=== PATIENT | female | born 1995 | race Caucasian/White ===

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

== ENCOUNTER 2020-09-20 12:35 | Inpatient (IN) ==
--- NOTE | 2020-09-20 12:57 | History & Physical Report ---
Date of Service September 20, 2020 Assessment & Plan (1) Active labor: PNL: Rh pos, RI, GBS neg, COVID neg Admit, labs, start IV Will proceed with urgent due to breech presentation and patient's presentation to L&D in early active labor. (2) Breech presentation: (3) Supervision of normal intrauterine in primigravida: History of Present Illness Primary Care Provider: Ashley Noble MD Nataly Terrell is a 25 y/o female currently at 38 +4 WGA with an KAYLI 09/30/2020 as determined by LMP who is here in early labor for . Patient with fetus in known breech presentation (originally had scheduled for 09/27/20). Just prior to arrival, she was evaluated in the OB office and was found to be 3cm dilated; she was then sent to L&D. Her has been uncomplicated. + contractions; + movement; - fluid loss; - bloody show Had regular appointments with OB. Blood type: A+ Antibody screen: negative Labs 03/19/20 Rubella: immune VDRL/RPR: neg Gonorrhea: neg Chlamydia: neg HIV: neg HbSAg: neg GBS: negative 09/07/2020 COVID-19 negative 09/20/20 Other screens: Declines CF/SMA/MSAFP Panorama low risk, female Allergies Allergy/AdvReac Type Severity Reaction Status Date / Time No Known Allergies Allergy Verified 09/20/20 07:10 Home Medications Medication Instructions Recorded Confirmed Type cetirizine 10 mg tablet 10 mg PO DAILY PRN 04/17/20 09/20/20 History prenat.vits,carmela,vub-limg-oeogb 1 tab PO DAILY 04/17/20 09/20/20 History docusate sodium [Colace] 50 mg PO DAILY 07/23/20 09/20/20 History Patient History Medical History Encounter for anatomic survey History of headache History of reactive airway disease Unspecified asthma with (acute) exacerbation Surgical History S/P wisdom tooth extraction Family History Grandfather (Paternal) Myocardial infarction Father Dyslipidemia Mother Multiple sclerosis Grandmother (Paternal) Breast cancer diagnosed in 70's Denies family history of Ovarian cancer Colorectal cancer Uterine cancer Social History Smoking Status: Never smoker Second Hand Exposure: No; Do You Dip or Chew Tobacco: No; Tobacco Cessation Education Requested by Patient: No Hx Alcohol Use: No Hx Substance Use: No Preferred Language: Armenian Communication Ability: Effective Sheltered Workshop Executive Director Required: No Beliefs That Will Affect Care: None marital status: marital status details: Arturo (25) [phone] Current Living Situation: Family Current Living Situation Comment: lvies with spouse, pts mom and dad, 2 dogs, 2 cats, family to change litter current occupational status: employed current occupation: [employer] Other Information That Helps Us Care for You: No Feels Safe at Home: Yes Safety Concerns: Feels Safe At This Time Assistive Devices: None Review of Systems Denies fever or chills. Denies shortness of breath or cough. Denies chest pain. Denies breast pain. Denies dysuria or hematuria. Denies leg pain or leg swelling. Denies headache or changes in vision. Physical Exam Physical Exam: General: Alert, oriented. No acute distress. Cardiac: Regular rate and rhythm, no murmurs/rubs/gallops. Respiratory: Clear to auscultation bilaterally a/p, no wheezes/rales/rhonchi. No increased work of breathing. Symmetrical chest rise. No respiratory distress. Abdomen: Gravid. Vertex position. + heart tones. +/- palpable contractions. EFW 7-8# Pelvic: Dilation 4 cm; Effacement 75%; Station -[address] Aburto External FHT and external uterine monitors used; Category I tracing; moderate FHT variability. Lower Extremities: No lower extremity edema or swelling. No deep calf pain. Carmel's negative bilaterally Results & Data ([facility]) Laboratory Results Labs at admission today 09/20/20 09/20/20 Range/Units 13:09 13:09 WBC 11.20 H (4.8-10.8) K/uL RBC 4.23 (4.2-5.4) M/uL Hgb 12.9 (12.0-16.0) g/dL Hct 38.3 (37-47) % MCV 90.5 (80-100) fL MCH 30.5 (25-34) pg MCHC 33.7 (32-36) g/dL RDW Std Deviation 43.3 (36.4-46.3) fL RDW Coeff of Glenis 13.1 (11.5-14.5) % Plt Count 302 (130-400) K/uL MPV 9.4 (7.4-10.4) fL Immature Gran % (Auto) 0.2 % Neut % (Auto) 79.0 % Lymph % (Auto) 14.6 % Harper % (Auto) 5.8 % Eos % (Auto) 0.4 % Baso % (Auto) 0.0 % Neut # (Auto) 8.84 H (1.4-6.5) K/uL Lymph # (Auto) 1.64 (1.2-3.4) K/uL Harper # (Auto) 0.65 H (0.11-0.59) K/uL Eos # (Auto) 0.05 (0-0.5) K/uL Baso # (Auto) 0.00 (0-0.2) K/uL Immature Gran # (Auto) 0.02 (0.00-0.02) K/uL Blood Type Pending Antibody Screen Pending Supervising Physician Co-Signing Physician Notes Patient seen and evaluated and agree with the above findings and plan. Resident Activity Tracking Resident Involvement: Resident Care Provided Care Provided: OB Delivery
[2020-09-20] MEDS: ceFAZolin 2000MG 2,000 MG/15 ML SYR IV SCH ×2 (13:10→13:59)
[2020-09-20] MEDS ORDERED: CITRIC ACID/SODIUM CITRATE 15 ML UDC PO SCH (13:15)
[2020-09-20 13:17] LABS: Eosinophils # (auto) 0.05 K/uL (0-0.5); Eosinophils % (auto) 0.4 %; Hematocrit (blood only) 38.3 % (37-47); Hemoglobin 12.9 g/dL (12.0-16.0); Immature Granulocytes # (auto) 0.02 K/uL (0.00-0.02); Immature Granulocytes % (auto) 0.2 %; Lymphocytes # (auto) 1.64 K/uL (1.2-3.4); Lymphocytes % (auto) 14.6 %; Mean Corpuscular Hemoglobin 30.5 pg (25-34); Mean Corpuscular Volume 90.5 fL (80-100); Mean Platelet Volume 9.4 fL (7.4-10.4); Monocytes # (auto) 0.65 K/uL (0.11-0.59); Monocytes % (auto) 5.8 %; Neutrophils # (auto) 8.84 K/uL (1.4-6.5); Platelet Count 302 K/uL (130-400); RDW Coefficient of Variation 13.1 % (11.5-14.5); RDW Standard Deviation 43.3 fL (36.4-46.3); Red Blood Count 4.23 M/uL (4.2-5.4)
[2020-09-20 13:33] LABS: Mean Corpuscular Hgb Conc 33.7 g/dL (32-36)
[2020-09-20] MEDS ORDERED: ONDANSETRON INJ 2 MG/ML 2 ML VIAL IV PRN (14:03)
[2020-09-20] MEDS ORDERED: MoRPHine SULFATE 2 MG/ML CARP IV PRN (14:03)
[2020-09-20] MEDS ORDERED: NALOXONE HCL 1 MG in SODIUM CHLORIDE 0.9% 1000ML 1,000 ML IV PRN (14:03)
[2020-09-20] MEDS ORDERED: NALOXONE HCL 0.4 MG/1 ML VIAL/CARP IV PRN (14:03)
[2020-09-20] MEDS ORDERED: HYDROmorphone INJ 1 MG/ML SYRINGE IV PRN (14:03)
[2020-09-20] MEDS ORDERED: LACTATED RINGER'S 500 ML IV PRN (14:03)
[2020-09-20] MEDS ORDERED: NALOXONE HCL 0.08 MG in SYRINGE 1.8 ML IV PRN (14:03)
[2020-09-20] MEDS ORDERED: ePHEDrine sulfate 50 MG/ML AMP IV PRN (14:03)
[2020-09-20] MEDS ORDERED: PROMETHAZINE HCL 6.25 MG in SODIUM CHLORIDE 0.9% 50 ML IV PRN (14:03)
[2020-09-20] MEDS ORDERED: MoRPHine SULFATE PF 1 MG/ML 10 ML AMP/VIAL INT SPINAL ONE (14:03)
[2020-09-20] MEDS ORDERED: diphenhydrAMINE 50 MG/ML VIAL IV PRN (14:03)
[2020-09-20] MEDS ORDERED: MEPERIDINE HCL 25 MG/ML CARP/VIAL IV PRN (14:03)
--- NOTE | 2020-09-20 14:03 | Anesthesiology Consultation ---
Date of Service September 20, 2020 Assessment & Plan (1) Encounter for pre-operative examination: Chart Review Chart Review: Acceptable Risk for Surgery and Patient NOT seen in Pre Admission Testing Consults Requested none ASA ASA2E Proposed Anesthesia Anesthesia Type: Spinal (+ intrathecal narcotics) Risk / Benefits Reviewed With: PT / POA / Parent / Guardian, Accepts Plan and Informed Consent Obtained History Surgery Operation Date: 09/20/20 13:15 Proposed Procedures p Section in OR - Paul Aburto MD Height/Weight Height: 5 ft 3 in Weight: 84.368 kg Allergies Allergy/AdvReac Type Severity Reaction Status Date / Time No Known Allergies Allergy Verified 09/20/20 07:10 Medications Home Medications Medication Instructions Recorded Confirmed Last Taken cetirizine 10 mg tablet 10 mg PO DAILY PRN 04/17/20 09/20/20 07/09/20 07:00 prenat.vits,carmela,uym-rbov-tffju 1 tab PO DAILY 04/17/20 09/20/20 07/23/20 05:00 docusate sodium [Colace] 50 mg PO DAILY 07/23/20 09/20/20 06/23/20 18:00 acetaminophen PO 07/24/20 09/20/20 Unknown Active Medications Generic Name Dose Route Start Last Admin Trade Name Freq PRN Reason Stop Dose Admin Cefazolin Sodium 2,000 mg in 15 mls @ 3.75 mls/min 09/20/20 13:15 09/20/20 13:59 Ancef 2000mg IV 09/20/20 16:00 3.75 mls/min PREOP@1315 LUCINDA Administration NPO Date Last Intake of Fluids: 09/20/20 Time Last Intake of Fluids: 12:00 Last Intake of Fluids Comment: sip of water to take Tylenol Date Last Intake of Solids: 09/20/20 Time Last Intake of Solids: 06:00 Past Medical History Medical History Encounter for anatomic survey History of headache History of reactive airway disease Unspecified asthma with (acute) exacerbation Exercise / Class Metabolic Activity II 4-5 Yardwork/Stairs/Walk up hill Past Family History Family History Grandfather (Paternal) Myocardial infarction Father Dyslipidemia Mother Multiple sclerosis Grandmother (Paternal) Breast cancer diagnosed in 70's Denies family history of Ovarian cancer Colorectal cancer Uterine cancer Past Surgical History Surgical History S/P wisdom tooth extraction Past Anesthesia History No Hx of Anesthesia Complications and No Family Hx of Anesthesia Complications History of PONV No Hx of PONV and No Hx of Motion Sickness Social History Smoking Status: Never smoker Do You Dip or Chew Tobacco: No Hx Alcohol Use: No Hx Substance Use: No substance use type: does not use Physical Exam Vital Signs Last Vital Signs Temp 36.7 C 09/20/20 13:12 Pulse 92 H 09/20/20 13:17 Resp 18 09/20/20 13:12 BP 121/77 09/20/20 13:17 ENMT Mouth: no dentition abnormality Thyromental Distance: > or= 3.5 Finger Breadths Mallampati Class: II Neck normal visual inspection Respiratory normal respiratory effort Auscultation: lungs clear to auscultation bilaterally Cardiovascular Rate/Rhythm: regular rate and regular rhythm Psychiatric Orientation: alert Testing Laboratory Results 09/20/20 13:09
[2020-09-20] MEDS ORDERED: fentaNYL citrate 100 MCG/2 ML VIAL ONE (14:13)
[2020-09-20] MEDS ORDERED: MoRPHine SULFATE PF 1 MG/ML 10 ML AMP/VIAL ONE (14:13)
[2020-09-20] MEDS ORDERED: SODIUM CHLORIDE 0.9% 1000ML 1,000 ML IV SCH (14:15)
[2020-09-20] MEDS ORDERED: NO NARCOTICS OR SEDATIVES SCH (14:15)
[2020-09-20] MEDS ORDERED: DC INTRASPINAL MORPHINE SCH (14:15)
[2020-09-20] MEDS ORDERED: KETOROLAC 30 MG/ML VIAL ONE (14:50)
[2020-09-20] MEDS ORDERED: OXYTOCIN 10 UNITS/ML VIAL ONE (14:50)
--- NOTE | 2020-09-20 15:55 | Post Operative Brief Note ---
PG Immediate Post Op with CF Date of Surgery September 20, 2020 Pre & Post Diagnosis Operation Date: 09/20/20 13:15 Pre-Op Diagnosis: Single uterine . 38 weeks and 4 days. Breech presentation in labor. Post-Op Diagnosis: Same as above. Primary section with delivery of live female child at 1438. (Main OR 3). I identified the patient and participated in the time-out.: Yes Procedure Operation Date: 09/20/20 13:15 Actual Procedures p Section in OR(Bilateral) - Paul Aburto MD Surgeon Paul Aburto MD Sulfur Burner Dr. Araya Estimated Blood Loss 500 Findings Consistent with Post-Op Diagnosis Specimens Specimen Description: A: Placenta hold B: Cord blood Drains Huitron Catheter (inserted after spinal placed, draining clear yellow urine) OB Procedure charges OB Charges 48539 C/S
--- NOTE | 2020-09-20 16:28 | Anesthesiology Progress Note ---
Date of Service September 20, 2020 Anesthesia Post Procedure Vital Signs Vital Signs: Temp Pulse Pulse Resp BP BP Pulse Ox 09/20/20 16:26 80 98 09/20/20 16:24 86 126/78 09/20/20 16:21 85 98 09/20/20 16:16 87 97 09/20/20 16:14 36.4 C L 90 20 121/77 09/20/20 16:11 82 98 09/20/20 16:06 89 97 09/20/20 16:04 89 20 123/75 09/20/20 16:01 79 99 09/20/20 15:56 81 97 09/20/20 15:54 78 20 115/70 09/20/20 15:51 79 98 09/20/20 15:46 78 98 09/20/20 15:45 88 20 115/58 L 09/20/20 15:41 88 98 09/20/20 15:36 82 98 09/20/20 15:34 36.4 C L 82 82 20 111/68 111/68 98 09/20/20 15:31 82 98 09/20/20 13:17 92 H 121/77 09/20/20 13:12 36.7 C 18 121/77 Pain Intensity Abdomen: Pain Intensity: 0 Transfer of Care Handoff Completed per policy Notes Mental Status: alert / awake / arousable Nausea / Vomiting: adequately controlled Pain: adequately controlled Airway Patency, RR, SpO2: stable & adequate BP & HR: stable & adequate Hydration State: stable & adequate Neuraxial Anesthesia: was administered and sensory block is resolving Anesthetic Complications: no major complications apparent and Pt Satisfied with anesthetic care
[2020-09-20] MEDS: OXYTOCIN 20 UNITS in LACTATED RINGER'S 1,000 ML IV SCH (17:41)
[2020-09-20] MEDS ORDERED: CETIRIZINE HCL 10 MG TABLET PO PRN (17:53)
[2020-09-20] MEDS ORDERED: BENZOCAINE 20% AER SPR 82.5 GM CAN EXT PRN (17:53)
[2020-09-20] MEDS ORDERED: SUPERCREAM 0.870% 15 GM JAR EXT PRN (17:53)
[2020-09-20] MEDS ORDERED: HYDROCORTISONE ACETATE 25 MG SUPP PR PRN (17:53)
[2020-09-20] MEDS ORDERED: DIPHTHERIA/TETANUS/PERTUSSIS 0.5 ML SYR/VIAL IM ONE (17:53)
[2020-09-20] MEDS ORDERED: SENNA 8.6 MG TAB PO PRN (17:53)
[2020-09-20] MEDS ORDERED: MAGNESIUM HYDROXIDE SUSP 30 ML UDC PO PRN (17:53)
--- NOTE | 2020-09-20 18:14 | Operative Report (OR) ---
DATE OF OPERATION: 09/20/2020 SURGEON: Paul Aburto MD. BUSINESS INFORMATION ANALYST: Isela Araya, PGY-1. PREOPERATIVE DIAGNOSES: 1. Single intrauterine at 38 weeks 4 days gestational age. 2. Breech presentation. 3. Labor. POSTOPERATIVE DIAGNOSES 1. Single intrauterine at 38 weeks 4 days gestational age. 2. Breech presentation. 3. Labor. 4. Status post delivery. ESTIMATED BLOOD LOSS: 500 mL. DRAINS: None. FLUIDS: Continuous lactated Ringer. URINE OUTPUT: Per Huitron catheter. COMPLICATIONS: None. FINDINGS: Viable female infant with weight and Apgars pending. INDICATIONS: Nataly is a 25-year-old G1, P0, admitted at 38 weeks 4 days gestational age, in early labor and with breech presentation. Discussed delivery via , which was already planned at 39 weeks for the breech presentation. consents were reviewed and signed. DESCRIPTION OF PROCEDURE: The patient was taken to the operating room after consents were ensured. Upon presentation, she was properly identified. Spinal anesthesia was obtained without difficulty. The patient was then prepped and draped in the normal sterile fashion. A preprocedural timeout was performed. The abdomen was then tested to ensure adequate surgical levels. A Pfannenstiel incision was then made with a knife. This was carried down to underlying fascia with the Bovie. The fascia was nicked at the midline with a knife. The fascial incision was then extended lateral in each direction with pickups and Bell scissors. The fascia was then grasped with Kochers x2, elevated off the underlying rectus muscles using blunt dissection. The superior and inferior aspect of the fascia was grasped with Kochers x2, elevated off the underlying rectus muscles using blunt dissection. The midline was then entered bluntly and placed on stretch to provide adequate room for delivery. Bladder blade was inserted and bladder flap was created. A low transverse uterine incision was then made with a knife. The uterine cavity was then entered bluntly and rupture of membranes was performed bluntly. The was noted to be in breech presentation and delivered through the hysterotomy to the level of the hips, at which time with internal rotation of the foot, was able to deliver each leg separately. The delivery continued to the level of the axilla and in sweeping of each arm internally, brought each arm out and the head of the was delivered with just fundal pressure. The was noted to be vigorous upon delivery. Cord was double clamped and cut. was taken to the waiting nursery staff. Cord blood was then obtained. Attention was then turned to deliver the placenta, which was delivered intact with 3-vessel cord with gentle cord traction and uterine massage. The uterus was then exteriorized, wrapped in a wet lap and several passes were made to remove any remaining membranes. The hysterotomy was then reapproximated with 0 Vicryl in continuous running locked stitch. A second imbricating layer of 0 Vicryl was then performed. The posterior cul-de-sac was then cleaned of clots and debris and the uterus returned to the maternal abdomen. Both right and left paracolic gutters were cleaned of clots and debris. The hysterotomy was reinspected. There were 2 small areas of bleeding and a [id number]-if-mmoyz stitch achieved adequate hemostasis. The muscle, fascial and subcutaneous layers were inspected and noted to be hemostatic. The fascia was then reapproximated with 0 Vicryl in continuous running stitch. The subcutaneous layers were reapproximated with a 2-0 plain in continuous running stitch. The dermal layers were reapproximated with a 3-0 Vicryl on a Vlad needle. Needle, sponge and instrument counts were correct at the completion of the case. Both mother and were stable in the immediate post-delivery period. I attest to the content of the Intraoperative Record and any orders documented therein. Any exception s are noted below.
[2020-09-20] MEDS: SIMETHICONE 80 MG CHEW PO SCH ×2 (18:58→21:30)
[2020-09-20] MEDS: DOCUSATE SODIUM 100 MG CAP PO SCH (21:30)
[2020-09-21] MEDS: KETOROLAC 30 MG/ML VIAL IV PRN ×2 (00:56→06:32)
[2020-09-21] MEDS: OXYTOCIN 20 UNITS in LACTATED RINGER'S 1,000 ML IV SCH (01:05)
[2020-09-21 06:05] LABS: Eosinophils # (auto) 0.04 K/uL (0-0.5); Eosinophils % (auto) 0.4 %; Immature Granulocytes # (auto) 0.02 K/uL (0.00-0.02); Immature Granulocytes % (auto) 0.2 %; Lymphocytes # (auto) 1.31 K/uL (1.2-3.4); Lymphocytes % (auto) 12.2 %; Mean Corpuscular Hemoglobin 30.3 pg (25-34); Mean Corpuscular Hgb Conc 33.3 g/dL (32-36); Mean Corpuscular Volume 90.9 fL (80-100); Mean Platelet Volume 9.1 fL (7.4-10.4); Monocytes # (auto) 0.79 K/uL (0.11-0.59); Monocytes % (auto) 7.3 %; Neutrophils # (auto) 8.62 K/uL (1.4-6.5); Neutrophils % (auto) 79.9 %; Platelet Count 230 K/uL (130-400); RDW Coefficient of Variation 13.3 % (11.5-14.5); RDW Standard Deviation 44.4 fL (36.4-46.3); Red Blood Count 3.63 M/uL (4.2-5.4); White Blood Count 10.78 K/uL (4.8-10.8)
--- NOTE | 2020-09-21 07:58 | Obstetrical Progress Note ---
Date of Service <Isela Araya DO - Last Filed: 09/21/20 07:58> September 21, 2020 Assessment & Plan <Isela Araya DO - Last Filed: 09/21/20 07:58> (1) state: POD #1 - PNL: Rh pos, RI, GBS neg, COVID neg - Feels well today. - Pain well controlled with analgesics. - Will remove pratt catheter this morning. - Routine care -- OOB, ambulation, diet progression as tolerated - After discharge will have 6 week follow-up with Dr. Aburto. Subjective <Isela Araya DO - Last Filed: 09/21/20 07:58> Nataly Terrell is a 25 y/o female who is POD #1 following urgent delivery (due to breech position) secondary to early active labor at 38 +4 weeks. She reports feeling well overall this morning. Minimal abdominal cramping and 3/10 pain well managed on analgesics. Has not yet voided; still with pratt catheter in place. Has not yet eaten. Not yet passing gas but feels the urge. Has persistent lochia with some improvement this morning. Currently . Review of Systems Denies fever or chills. Denies shortness of breath or cough. Denies chest pain. Denies breast pain. Denies leg pain or leg swelling. Denies headache or changes in vision. Physical Exam <Isela Araya DO - Last Filed: 09/21/20 07:58> General: Alert, oriented. No acute distress. Cardiac: Regular rate and rhythm. No murmurs. Respiratory: Clear to auscultation bilaterally a/p, no wheezes/rales/rhonchi. No increased work of breathing. Symmetrical chest rise. No respiratory distress. Abdomen: Soft, nontender, nondistended. Bowel sounds present. Uterus: Uterine fundus firm, palpable at umbilicus. Surgical scar clean and healing well. Lower Extremities: No lower extremity edema or swelling. No deep calf pain. Carmel's negative bilaterally. Results & Data ([facility]) <Isela Araya DO - Last Filed: 09/21/20 07:58> Vital Signs (Past 12 Hours) Vital Signs Temp Pulse Resp BP Pulse Ox 09/21/20 06:37 20 99 09/21/20 05:30 20 96 09/21/20 04:30 16 96 09/21/20 03:30 36.9 C 80 18 101/62 97 09/21/20 02:30 18 97 09/21/20 01:30 95 H 20 L 09/21/20 00:30 95 H 18 L 09/21/20 00:02 37 C 91 H 20 112/72 96 09/20/20 23:30 20 96 09/20/20 22:35 18 96 09/20/20 21:26 18 96 09/20/20 20:50 16 95 09/20/20 20:05 20 95 Laboratory Results 09/21/20 09/20/20 09/20/20 Range/Units 05:48 Unknown Unknown WBC 10.78 (4.8-10.8) K/uL RBC 3.63 L (4.2-5.4) M/uL Hgb 11.0 L (12.0-16.0) g/dL Hct 33.0 L (37-47) % MCV 90.9 (80-100) fL MCH 30.3 (25-34) pg MCHC 33.3 (32-36) g/dL RDW Std Deviation 44.4 (36.4-46.3) fL RDW Coeff of Glenis 13.3 (11.5-14.5) % Plt Count 230 (130-400) K/uL MPV 9.1 (7.4-10.4) fL Immature Gran % (Auto) 0.2 % Neut % (Auto) 79.9 % Lymph % (Auto) 12.2 % Hayes % (Auto) 7.3 % Eos % (Auto) 0.4 % Baso % (Auto) 0.0 % Neut # (Auto) 8.62 H (1.4-6.5) K/uL Lymph # (Auto) 1.31 (1.2-3.4) K/uL Hayes # (Auto) 0.79 H (0.11-0.59) K/uL Eos # (Auto) 0.04 (0-0.5) K/uL Baso # (Auto) 0.00 (0-0.2) K/uL Immature Gran # (Auto) 0.02 (0.00-0.02) K/uL COVID-19 [facility] SARS-[facility]-2, RNA, NAAT NEGATIVE (NEGATIVE) Blood Type Antibody Screen 09/20/20 09/20/20 Range/Units 13:09 13:09 WBC 11.20 H (4.8-10.8) K/uL RBC 4.23 (4.2-5.4) M/uL Hgb 12.9 (12.0-16.0) g/dL Hct 38.3 (37-47) % MCV 90.5 (80-100) fL MCH 30.5 (25-34) pg MCHC 33.7 (32-36) g/dL RDW Std Deviation 43.3 (36.4-46.3) fL RDW Coeff of Glenis 13.1 (11.5-14.5) % Plt Count 302 (130-400) K/uL MPV 9.4 (7.4-10.4) fL Immature Gran % (Auto) 0.2 % Neut % (Auto) 79.0 % Lymph % (Auto) 14.6 % Hayes % (Auto) 5.8 % Eos % (Auto) 0.4 % Baso % (Auto) 0.0 % Neut # (Auto) 8.84 H (1.4-6.5) K/uL Lymph # (Auto) 1.64 (1.2-3.4) K/uL Hayes # (Auto) 0.65 H (0.11-0.59) K/uL Eos # (Auto) 0.05 (0-0.5) K/uL Baso # (Auto) 0.00 (0-0.2) K/uL Immature Gran # (Auto) 0.02 (0.00-0.02) K/uL COVID-19 Eval Order SARS-CoV-2, RNA, NAAT (NEGATIVE) Blood Type A Positive Antibody Screen NEGATIVE <Paul Aburto MD - Last Filed: 09/21/20 08:17> Co-Signing Physician Notes Patient seen and evaluated and agree with the above findings and plan. Doing well. Routine care Resident Activity Tracking <Isela Araya DO - Last Filed: 09/21/20 07:58> Resident Involvement: Resident Care Provided Care Provided: OB Delivery
[2020-09-21] MEDS ORDERED: ONDANSETRON INJ 2 MG/ML 2 ML VIAL IV PRN (08:03)
[2020-09-21] MEDS ORDERED: KETOROLAC 30 MG/ML VIAL IV PRN (08:03)
[2020-09-21] MEDS ORDERED: diphenhydrAMINE 50 MG/ML VIAL IV PRN (08:03)
[2020-09-21] MEDS ORDERED: diphenhydrAMINE Capsule 25 MG CAP PO PRN (08:03)
[2020-09-21] MEDS: DOCUSATE SODIUM 100 MG CAP PO SCH ×2 (08:11→21:04)
[2020-09-21] MEDS: SIMETHICONE 80 MG CHEW PO SCH ×4 (08:11→21:04)
[2020-09-21] MEDS: PRENATAL VITAMIN 1 TAB PO SCH (08:11)
[2020-09-21] MEDS: IBUPROFEN 600 MG TAB PO PRN ×3 (12:07→21:03)
[2020-09-21] MEDS: oxyCODONE/ACETAMINOPHEN 5mg/325mg TAB PO PRN ×2 (17:35→21:04)
[2020-09-21] MEDS ORDERED: bisacodyL 5 MG TABEC PO SCH (20:00)
[2020-09-22] MEDS: oxyCODONE/ACETAMINOPHEN 5mg/325mg TAB PO PRN ×2 (02:38→07:54)
[2020-09-22] MEDS: IBUPROFEN 600 MG TAB PO PRN ×2 (02:38→07:54)
[2020-09-22 06:15] LABS: Hemoglobin 10.2 g/dL (12.0-16.0)
--- NOTE | 2020-09-22 06:45 | Obstetrical Progress Note ---
Date of Service <Isela Araya DO - Last Filed: 09/22/20 06:45> September 22, 2020 Assessment & Plan <Isela Araya DO - Last Filed: 09/22/20 06:45> (1) state: POD #2 - PNL: Rh pos, RI, GBS neg, COVID neg - Feels well today. Eating well, voiding well, ambulating well. - Pain well controlled with ibuprofen 600mg Q4H PRN and Percocet - Routine care -- continue OOB, ambulation, and diet progression as tolerated - After discharge will have 6 week follow-up with Dr. Aburto. - Plan for d/c home today. Subjective <Isela Araya DO - Last Filed: 09/22/20 06:45> Nataly Terrell is a 25 y/o female who is POD #2 following urgent delivery (due to breech position) secondary to early active labor at 38 +4 w eeks. She reports feeling well overall this morning. Minimal abdominal cramping and 4/10 pain well managed on analgesics. Voiding without dysuria. Tolerating meals overnight without difficulty. Patient has been able to ambulate some. She is passing gas and has had a bowel movement. Has persistent lochia with some improvement this morning. Currently bottle feeding. Review of Systems Denies fever or chills. Denies shortness of breath or cough. Denies chest pain. Denies breast pain. Denies dysuria. Denies leg pain or leg swelling. Denies headache or changes in vision. Physical Exam <Isela Araya DO - Last Filed: 09/22/20 06:45> General: Alert, oriented. No acute distress. Cardiac: Regular rate and rhythm. No murmurs. Respiratory: Clear to auscultation bilaterally a/p, no wheezes/rales/rhonchi. No increased work of breathing. Symmetrical chest rise. No respiratory distress. Abdomen: Soft, nontender, nondistended. Bowel sounds present. Uterus: Uterine fundus firm, palpable at umbilicus. Surgical scar clean and healing well. Lower Extremities: 1+ BLE edema. No deep calf pain. Carmel's negative bilaterally. Results & Data ([facility]) <Isela Araya DO - Last Filed: 09/22/20 06:45> Vital Signs (Past 12 Hours) Vital Signs Temp Pulse Resp BP Pulse Ox 09/22/20 00:05 36.9 C 87 16 116/75 98 09/21/20 19:25 36.4 C L 95 H 16 124/75 97 Laboratory Results 09/22/20 Range/Units 05:54 Hgb 10.2 L (12.0-16.0) g/dL Hct 31.0 L (37-47) % <Lavern Lugo MD - Last Filed: 09/22/20 06:47> Co-Signing Physician Notes Resident Physician Supervision Note: I interviewed and examined the patient. Discussed with Dr. Araya and agree with findings and plan as documented in the note. Any exceptions or clarifications are listed here: None. Patient requesting discharge, instructions reviewed and plans for Nexplanon after her checkup with abstinence in the meantime. Documented By: Lavern Lugo MD, FACOG Resident Activity Tracking <Isela Araya DO - Last Filed: 09/22/20 06:45> Resident Involvement: Resident Care Provided Care Provided: OB Delivery
[2020-09-22] MEDS: DOCUSATE SODIUM 100 MG CAP PO SCH (07:53)
[2020-09-22] MEDS: SIMETHICONE 80 MG CHEW PO SCH (07:54)
[2020-09-22] MEDS: PRENATAL VITAMIN 1 TAB PO SCH (07:54)
[2020-09-22] MEDS ORDERED: bisacodyL 10 MG SUPP PR PRN (15:34)
--- NOTE | 2020-09-26 00:30 | Discharge Summary (DS) ---
HOSPITAL COURSE: The patient was admitted for labor with breech presentation and underwent a primary low transverse section, which was performed without difficulty. The patient remained in house until postoperative day #2, at which time she was discharged home per her request, in stable condition. The patient was provided both written and verbal discharge instructions with planned followup in 6 weeks or as needed if concerns arise.
== END 2020-09-22 11:21 | disposition home or self-care (01) | DRG 788 ==
LOC: OPB 12:35 → 4S1 12:36 → 4S2 18:28

== ENCOUNTER 2022-01-29 05:11 | Inpatient (IN) ==
--- NOTE | 2022-01-29 07:49 | Obstetrical Progress Note ---
Date of Service January 29, 2022 Assessment & Plan (1) Uterine contractions: (2) Previous delivery affecting , antepartum: Plan: Patient is having contractions, notes she feels increased in frequency and discomfort since here. Not significant cervical change at this point. However, given continued contractions, recommend monitoring a bit more to see if demonstrates change. Discussed that at 36 weeks, must show change consistent with labor to proceed with c/s. Fetus category one and very reassuring. Subjective Patient is 26yowf with iup at 36 4/7 weeks who presents to labor and delivery with contractions. Started about 4am. Notes mostly in back. No vb/lof. +fm. Has planned repeat c/s. has otherwise been uncomplicated. 36 week visit was cl/50% Physical Exam Constitutional: WD/WN, vitals as above Gastrointestinal (Abdomen): soft, gravid, nt Psychiatric: A+Ox3, euthymic affect Genitourinary: cx--first check with nurse, ext os open but could not get into int os/50/-2 repeat check by me--ext os 1+/int os essentially closed/75/-2 toco--q3-5min efm--140s wtih mod varibility, accels to 170s, no decels Results & Data ([facility]) Vital Signs (Past 12 Hours) Vital Signs Temp Pulse Resp BP 01/29/22 07:08 36.8 C 93 H 18 138/85 01/29/22 05:44 100 H 139/93 01/29/22 05:26 96 H 139/84 01/29/22 05:22 37.1 C 20 PG Care Time/CCT Total # of Minutes Spent Total Time Spent with Patient: Total time spent is greater than 50% in coordination of care (as documented) at patient's floor/unit and/or counseling patient: Coding Level of Care Code None Diagnoses Uterine contractions O47.9 Previous delivery affecting , antepartum O34.219
[2022-01-29] MEDS ORDERED: SODIUM CHLORIDE 0.9% 250 ML IV PRN (10:12)
[2022-01-29] MEDS ORDERED: LACTATED RINGER'S 1,000 ML IV SCH ×2 (10:15→13:19)
--- NOTE | 2022-01-29 10:15 | Labor Progress Brief Note ---
Date of Service January 29, 2022 Subjective Patient continues to be uncomfortable during contractions. Has been alternating between walking around unit and resting on monitor. Good FM, no LOF or VB. Assessment & Plan (1) Previous delivery affecting , antepartum: Plan: Currently in labor at 36w4d, with history of prior for breech. Patient does not desire and would like repeat . Given cervical change will proceed with repeat today. (2) Active labor: Physical Exam Genitourinary: Ctx Q3-4 FHT Cat 1 Cervix 2/80/-2 Vtx palpable membranes intact Results & Data ([facility]) Vital Signs (Past 12 Hours) Vital Signs Temp Pulse Resp BP 01/29/22 07:08 98.2 F 93 H 18 138/85 01/29/22 05:44 100 H 139/93 01/29/22 05:26 96 H 139/84 01/29/22 05:22 98.8 F 20 Coding Level of Care Code None Diagnoses Previous delivery affecting , antepartum O34.219 Active labor
[2022-01-29] MEDS ORDERED: CITRIC ACID/SODIUM CITRATE 15 ML UDC PO ONE (10:30)
[2022-01-29] MEDS ORDERED: ceFAZolin 2000MG 2,000 MG/15 ML SYR IV ONE (10:30)
--- NOTE | 2022-01-29 10:35 | Anesthesiology Consultation ---
Date of Service January 29, 2022 Assessment & Plan (1) Encounter for pre-operative examination: Chart Review Chart Review: Acceptable Risk for Surgery and Patient NOT seen in Pre Admission Testing Consults Requested none History Height/Weight Height: 5 ft 3 in Weight: 90.265 kg Allergies Allergy/AdvReac Type Severity Reaction Status Date / Time No Known Allergies Allergy Verified 01/28/22 08:05 Medications Home Medications Medication Instructions Recorded Confirmed Last Taken clindamycin phosphate 1 % lotion 1 applic TOPICAL DAILY #60 ml 06/25/21 01/28/22 Unknown prenat.vits,carmela,iuu-ftow-uqpux 1 tab PO DAILY 06/25/21 01/28/22 01/07/22 0800 ondansetron HCl 4 mg tablet 4 mg PO Q6H PRN #20 tab 07/15/21 01/28/22 01/07/22 (Zofran) 1700 cetirizine 5 mg tablet 5 mg PO DAILY PRN 01/07/22 01/28/22 12/30/21 07:00 5 hydrocortisone acetate 25 mg 25 mg NH DAILY PRN #12 ea 01/08/22 01/28/22 Unknown rectal suppository (Anusol-HC) Active Medications Generic Name Dose Route Start Last Admin Trade Name Freq PRN Reason Stop Dose Admin Lactated Ringer's 1,000 mls @ 999 mls/hr 01/29/22 10:15 01/29/22 10:08 Lr IV 01/29/22 11:15 999 mls/hr .Q1H1M LUCINDA Administration Past Medical History Medical History Encounter for anatomic survey History of headache History of reactive airway disease Unspecified asthma with (acute) exacerbation Varicella vaccination Past Family History Family History Grandfather (Paternal) Myocardial infarction Father Dyslipidemia Mother Multiple sclerosis Grandmother (Paternal) Breast cancer diagnosed in 70's Denies family history of Ovarian cancer Colorectal cancer Uterine cancer Past Surgical History Surgical History Previous section 2020 S/P wisdom tooth extraction Social History Smoking Status: Never smoker Hx Alcohol Use: No Hx Substance Use: No substance use type: does not use Physical Exam Vital Signs Last Vital Signs Temp 98.2 F 01/29/22 07:08 Pulse 93 H 01/29/22 07:08 Resp 18 01/29/22 07:08 BP 138/85 01/29/22 07:08
[2022-01-29] MEDS ORDERED: fentaNYL citrate 100 MCG/2 ML VIAL ONE (10:42)
[2022-01-29] MEDS ORDERED: ONDANSETRON INJ 2 MG/ML 2 ML VIAL ONE (10:42)
[2022-01-29] MEDS ORDERED: MoRPHine SULFATE PF 1 MG/ML 10 ML AMP/VIAL ONE (10:43)
[2022-01-29 11:02] LABS: Eosinophils # (auto) 0.03 K/uL (0-0.5); Eosinophils % (auto) 0.3 %; Hematocrit (blood only) 34.8 % (37-47); Hemoglobin 11.5 g/dL (12.0-16.0); Immature Granulocytes # (auto) 0.03 K/uL (0.00-0.02); Immature Granulocytes % (auto) 0.3 %; Lymphocytes # (auto) 1.68 K/uL (1.2-3.4); Mean Corpuscular Hemoglobin 29.8 pg (25-34); Mean Corpuscular Volume 90.2 fL (80-100); Mean Platelet Volume 9.3 fL (7.4-10.4); Monocytes # (auto) 0.58 K/uL (0.11-0.59); Monocytes % (auto) 6.2 %; Neutrophils # (auto) 7.03 K/uL (1.4-6.5); Neutrophils % (auto) 75.2 %; Platelet Count 282 K/uL (130-400); RDW Coefficient of Variation 13.1 % (11.5-14.5); Red Blood Count 3.86 M/uL (4.2-5.4); White Blood Count 9.35 K/uL (4.8-10.8)
[2022-01-29] MEDS ORDERED: LACTATED RINGER'S 500 ML IV PRN (11:24)
[2022-01-29] MEDS ORDERED: NALOXONE HCL 0.08 MG in SYRINGE 1.8 ML IV PRN (11:24)
[2022-01-29] MEDS ORDERED: NALBUPHINE HCL INJ 10 MG/ML AMP IV PRN (11:24)
[2022-01-29] MEDS ORDERED: NALOXONE HCL 1 MG in SODIUM CHLORIDE 0.9% 1000ML 1,000 ML IV PRN (11:24)
[2022-01-29] MEDS ORDERED: diphenhydrAMINE 50 MG/ML VIAL IV PRN (11:24)
[2022-01-29] MEDS ORDERED: KETOROLAC 30 MG/ML VIAL IV PRN (11:24)
[2022-01-29] MEDS ORDERED: ONDANSETRON INJ 2 MG/ML 2 ML VIAL IV PRN (11:24)
[2022-01-29] MEDS ORDERED: HYDROmorphone INJ 0.5 MG/0.5 ML SYR IV PRN (11:24)
[2022-01-29] MEDS ORDERED: NALOXONE HCL 0.4 MG/1 ML VIAL/CARP IV PRN (11:24)
[2022-01-29] MEDS ORDERED: ACETAMINOPHEN 325 MG TAB PO PRN (11:24)
[2022-01-29] MEDS ORDERED: MoRPHine SULFATE PF 1 MG/ML 10 ML AMP/VIAL INT SPINAL ONE (11:24)
[2022-01-29] MEDS ORDERED: ePHEDrine sulfate 50 MG/ML AMP IV PRN (11:24)
[2022-01-29] MEDS ORDERED: KETOROLAC 30 MG/ML VIAL ONE (11:28)
[2022-01-29] MEDS ORDERED: OXYTOCIN 10 UNITS/ML 10ML VIAL ONE (11:28)
[2022-01-29] MEDS ORDERED: DC INTRASPINAL MORPHINE SCH (11:30)
[2022-01-29] MEDS ORDERED: NO NARCOTICS OR SEDATIVES SCH (11:30)
[2022-01-29] MEDS ORDERED: SODIUM CHLORIDE 0.9% 1000ML 1,000 ML IV SCH (11:30)
--- NOTE | 2022-01-29 12:16 | Operative Report ---
[facility] Post Operative Report Pre & Post Diagnosis Operation Date: 01/29/22 11:00 [facility] at 36w4d Labor History of Section Declines TOLAC/ I identified the patient and participated in the time-out.: Yes Procedure Operation Date: 01/29/22 11:00 Actual Procedures Repeat Low Transverse Section with two layer closure Surgeon Lavern Lugo MD [employer] Consulting Director Diane COLLINS Estimated Blood Loss 400 Findings Consistent with Post-Op Diagnosis Specimens Placenta, Cord blood Anesthesia Type Spinal Complications none Disposition Accompanied Patient To Recovery: Yes Disposition: L&D Description of Procedure The patient was placed operating table in the supine position with a leftward tilt. She was prepped and draped in standard sterile fashion. The anesthetic was tested and found to be adequate. A time-out was held, identifying correct patient, procedure, positioning and preoperative antibiotics. There were no concerns. A Pfannenstiel skin incision was made with a knife, excising the prior scar, and taken down to the underlying layer of fascia. The fascia was incised in the midline with the knife and taken out laterally with scissors. The superior edge of the fascial incision was grasped, elevated and dissected off the underlying rectus both superiorly and inferiorly. The muscles were bluntly in the midline. The peritoneum was entered bluntly. The incision was then stretched. The bladder retractor was placed. The vesicouterine peritoneum was identified, entered with scissors and taken out laterally with scissors. The bladder flap was created digitally. A hysterotomy incision was created transversely in the lower uterine segment, final entry being accomplished in a blunt manner with the band head saw operator's fingers. Clear amniotic fluid was encountered. The band head saw operator's hand was used to elevate the head to the hysterotomy. The head was delivered using mild fundal pressure, and the shoulders and body followed without difficulty. The cord was clamped and cut and the was then handed off to the awaiting sport intern. Cord blood was obtained. The placenta was Manually extracted. The uterus was exteriorized and cleared of all clot and debris with moistened laparotomy sponges. The hysterotomy incision was repaired in two layers, the first in a running locked layer, the second in an imbricating layer. The ovaries and tubes were seen to be normal bilaterally. The uterus was gently replaced in the abdomen, and the gutters were cleared of clot and debris. A final inspection of the hysterotomy revealed good hemostasis. The rectus muscles were allowed to reapproximate naturally. The fascia was then reapproximated with 1 Vicryl in a running nonlocked manner. The fascia was examined and found to be free of defect following closure. The subcutaneous tissue was copiously irrigated and reapproximated with 0-chromic, then the skin edges were closed with 4-0 monocryl in a subcuticular fashion. A dermabond dressing was applied. The pratt was found to be draining clear yellow urine at completion of the procedure. I attest to the content of the Intraoperative Record and any orders documented therein. Any exceptions are noted below. I attest to the content of the Intraoperative Record and any orders documented therein. Any exceptions are noted below. OB Procedure Charges 83613
[2022-01-29] MEDS ORDERED: HYDROCORTISONE ACETATE 25 MG SUPP PR PRN (13:19)
[2022-01-29] MEDS ORDERED: BENZOCAINE 20% AER SPR 82.5 GM CAN EXT PRN (13:19)
[2022-01-29] MEDS ORDERED: CETIRIZINE HCL 10 MG TABLET PO PRN (13:19)
[2022-01-29] MEDS ORDERED: SENNA 8.6 MG TAB PO PRN (13:19)
[2022-01-29] MEDS ORDERED: MAGNESIUM HYDROXIDE SUSP 30 ML UDC PO PRN (13:19)
[2022-01-29] MEDS ORDERED: DIPHTHERIA/TETANUS/PERTUSSIS 0.5 ML SYR/VIAL IM ONE (13:19)
[2022-01-29] MEDS: SIMETHICONE 80 MG CHEW PO SCH ×3 (13:30→20:58)
[2022-01-29] MEDS ORDERED: OXYTOCIN 30 UNITS in LACTATED RINGER'S 1,000 ML IV SCH (14:00)
--- NOTE | 2022-01-29 15:21 | Anesthesia Procedure Note ---
Date of Service January 29, 2022 Anesthesia Post Epidural Note Vital Signs Vital Signs: Temp Pulse Resp BP Pulse Ox 97.9 F 82 18 114/71 98 01/29/22 14:05 01/29/22 14:05 01/29/22 14:05 01/29/22 14:05 01/29/22 14:05 Pain Intensity Abdomen: Pain Intensity: 1 Notes Mental Status: alert / awake / arousable and participated in evaluation Nausea / Vomiting: adequately controlled Pain: adequately controlled Airway Patency, RR, SpO2: stable & adequate BP & HR: stable & adequate Hydration State: stable & adequate Neuraxial Anesthesia: was administered and sensory block is resolving Anesthetic Complications: no major complications apparent and Pt Satisfied with anesthetic care Epidural: Removed without complications and With tip intact
[2022-01-29] MEDS: DOCUSATE SODIUM 100 MG CAP PO SCH (20:58)
[2022-01-30] MEDS ORDERED: KETOROLAC 30 MG/ML VIAL IV PRN (05:25)
[2022-01-30] MEDS ORDERED: ONDANSETRON INJ 2 MG/ML 2 ML VIAL IV PRN (05:25)
[2022-01-30] MEDS ORDERED: diphenhydrAMINE Capsule 25 MG CAP PO PRN (05:25)
[2022-01-30] MEDS ORDERED: MEPERIDINE HCL 50 MG/ML CARP IV PRN (05:25)
[2022-01-30] MEDS ORDERED: diphenhydrAMINE 50 MG/ML VIAL IV PRN (05:25)
[2022-01-30] MEDS ORDERED: PROMETHAZINE HCL 25 MG in SODIUM CHLORIDE 0.9% 50 ML IV PRN (05:25)
--- NOTE | 2022-01-30 06:15 | Obstetrical Progress Note ---
Date of Service January 30, 2022 Assessment & Plan (1) Postoperative state: POD#1 RCS after presenting in PTL, declined TOLAC/. Doing well this morning - TOV, ambulation, reg diet, assistance as patient desires to try this but bottle fed the prior one Rh pos, GBS unk Subjective Ambulation: limited ambulation (not OOB yet) Voiding: pratt catheter in place (just removed prior to visit but not voided yet) Passing Gas:: Yes Diet Tolerance:: regular diet Lochia:: Small Feeding Type:: breast feeding (attempting - with bottle supplementation) Physical Exam Constitutional WD/WN, vitals as above Eyes PERRL, conjunctivae normal, anicteric sclerae Neck normal visual inspection Respiratory normal respiratory effort and able to speak in complete sentences; no respiratory distress and no labored breathing Cardiovascular Rate/Rhythm: regular rate and regular rhythm Extremities: no edema Chest (Breasts) Chest: normal inspection of chest Gastrointestinal (Abdomen) Inspection/Auscultation: abdomen normal to inspection Soft, postgravid Incision c/d/i with dermabond Psychiatric A+Ox3, euthymic affect Genitourinary OB Exam Abdomen: + fundal height Fundus: + firm and + relation to umbilicus (fundus just below umbilicus); not tender Results & Data ([facility]) Vital Signs (Past 12 Hours) Vital Signs Temp Pulse Resp BP Pulse Ox 01/30/22 05:00 16 97 01/30/22 04:00 97.9 F 88 16 110/71 97 01/30/22 03:00 16 97 01/30/22 02:07 16 96 01/30/22 01:00 16 97 01/30/22 00:00 18 97 01/29/22 23:00 98.6 F 92 H 18 113/69 98 01/29/22 22:00 16 97 01/29/22 21:00 18 98 01/29/22 20:00 18 98 01/29/22 19:30 98.2 F 81 18 118/76 97 01/29/22 19:00 18 97 01/29/22 18:35 16 98
[2022-01-30 07:15] LABS: Eosinophils # (auto) 0.11 K/uL (0-0.5); Eosinophils % (auto) 1.1 %; Hematocrit (blood only) 31.8 % (37-47); Hemoglobin 10.3 g/dL (12.0-16.0); Immature Granulocytes # (auto) 0.02 K/uL (0.00-0.02); Immature Granulocytes % (auto) 0.2 %; Lymphocytes # (auto) 1.41 K/uL (1.2-3.4); Lymphocytes % (auto) 14.6 %; Mean Corpuscular Hemoglobin 29.2 pg (25-34); Mean Corpuscular Hgb Conc 32.4 g/dL (32-36); Mean Corpuscular Volume 90.1 fL (80-100); Mean Platelet Volume 9.1 fL (7.4-10.4); Monocytes # (auto) 0.74 K/uL (0.11-0.59); Monocytes % (auto) 7.6 %; Neutrophils % (auto) 76.5 %; Platelet Count 280 K/uL (130-400); RDW Coefficient of Variation 13.4 % (11.5-14.5); RDW Standard Deviation 44.1 fL (36.4-46.3); Red Blood Count 3.53 M/uL (4.2-5.4); White Blood Count 9.68 K/uL (4.8-10.8)
[2022-01-30] MEDS: SIMETHICONE 80 MG CHEW PO SCH ×4 (08:00→19:34)
[2022-01-30] MEDS: FERROUS SULFATE 325 MG TAB PO SCH (08:00)
[2022-01-30] MEDS: PRENATAL VITAMIN 1 TAB PO SCH (08:00)
[2022-01-30] MEDS: DOCUSATE SODIUM 100 MG CAP PO SCH ×2 (08:01→19:34)
[2022-01-30] MEDS: IBUPROFEN 600 MG TAB PO PRN ×3 (08:44→17:18)
[2022-01-31] MEDS: IBUPROFEN 600 MG TAB PO PRN ×3 (02:36→14:56)
[2022-01-31] MEDS: oxyCODONE/ACETAMINOPHEN 5mg/325mg TAB PO PRN ×3 (05:22→14:56)
[2022-01-31 06:28] LABS: Hematocrit (blood only) 30.8 % (37-47)
--- NOTE | 2022-01-31 07:52 | Obstetrical Progress Note ---
Date of Service January 31, 2022 Assessment & Plan (1) Encounter for care and examination after delivery: normal post-op progress continue current care plan baby on supplemental O2 Subjective Ambulation: ambulating normally Voiding: no voiding problems Passing Gas:: Yes Diet Tolerance:: regular diet Lochia:: Small Review of Systems All systems reviewed & are unremarkable except as noted in HPI & below Physical Exam Constitutional WD/WN, vitals as above Gastrointestinal (Abdomen) incision dry and intact- no cellulitis Psychiatric A+Ox3, euthymic affect Genitourinary OB Exam Abdomen: + fundal height Fundus: + firm and + relation to umbilicus (1 below U); not tender Results & Data ([facility]) Vital Signs (Past 12 Hours) Vital Signs Temp Pulse Resp BP Pulse Ox 01/31/22 00:00 98.6 F 82 16 124/76 98
[2022-01-31] MEDS: DOCUSATE SODIUM 100 MG CAP PO SCH (08:06)
[2022-01-31] MEDS: FERROUS SULFATE 325 MG TAB PO SCH (08:06)
[2022-01-31] MEDS: PRENATAL VITAMIN 1 TAB PO SCH (08:06)
[2022-01-31] MEDS: SIMETHICONE 80 MG CHEW PO SCH ×2 (08:06→12:39)
--- NOTE | 2022-02-03 17:12 | Discharge Summary ---
Date of Service February 03, 2022 Discharge Data Consultations 01/29/22 10:08 Consult Anesthesiology Stat Procedures Performed Operation Date: 01/29/22 11:00 Actual Procedures p Section in LD - Lavern Lugo MD Hospital Course (1) Encounter for care and examination after delivery: Patient admitted in labor, and desired repeat which was uncomplicated. D/C to home on POD#2 in good condition with usual postop follow up plan Coding Level of Care Code None Diagnoses Encounter for care and examination after delivery Z39.2
== END 2022-01-31 17:19 | disposition home or self-care (01) | DRG 788 ==
LOC: OPB 05:11 → 4S1 05:13 → 4E2 14:08